=== PATIENT | female | born 1995 | race Hispanic/Latino ===

== ENCOUNTER 2017-01-12 22:30 | Emergency (ER) | payer OTHER ==
[~2017-01-12] VITALS: Ht 162.6 cm; Wt 51.8 kg
[2017-01-12] MEDS ORDERED: MOTRIN800 MG PO (23:22)
[2017-01-12] MEDS ORDERED: FLEXERIL PO (23:22)
[2017-01-13 00:40] VITALS: BP 117/57
== END 2017-01-13 00:46 | disposition home or self-care (01) | DRG 914 ==
LOC: ED 22:30
DX: S09.90XA Unspecified injury of head, initial encounter (principal); S00.83XA Contusion of other part of head, initial encounter; S40.012A Contusion of left shoulder, initial encounter; V49.59XA Passenger injured in collision with other motor vehicles in traffic accident, initial encounter; Y92.413 State road as the place of occurrence of the external cause